=== PATIENT | female | born 1995 | race Caucasian/White ===

== ENCOUNTER → 2020-10-08 07:59 | Outpatient (CLI) | payer MEDICAID, SELFPAY ==
--- NOTE | 2020-10-08 | DI.US.S_ITS ---
PROCEDURE: US OB <= 14 WEEKS FETUS INDICATIONS: SIZE AND DATING OUTSIDE/PRIOR DATING DATA: Last menstrual period (LMP): 08/11/2020. LMP-based estimated date of delivery (LEDA): 05/18/2021. First dating scan (date and location): 10/09/2019. Estimated date of delivery (LEDA) from first dating scan: 05/16/2021. TECHNIQUE: Real-time scanning was performed of the fetus and maternal pelvic organs, with image documentation. Endovaginal scanning was also performed to better visualize the fetus and maternal ovaries. COMPARISON: None. FINDINGS: Embryo: Single live intrauterine is identified with crown-rump length measuring 2.0 cm corresponding to 8 weeks 4 days. heart rate identified at 165 beats per minute. Measurement variability in dating: +/- 4 weeks by LMP, +/- 7 days by mean sac diameter (use before 6 weeks gestation if crown-rump length not able to be measured), +/- 5 days by crown-rump length (up to 8 weeks 6 days gestation), +/- 7 days by crown-rump length (up to 13 weeks 6 days gestation). Maternal organs: Right ovary is not visualized. Presumed corpus luteal cyst is noted within the left ovary. IMPRESSION: 1. Single live intrauterine with ultrasound gestational age of 8 weeks 4 days. 2. Recommend follow-up imaging at 20-22 weeks for dates and anatomy. Dictated by: Cindy Mason M.D. on 10/08/2020 at 12:12 Approved by: Cindy Mason M.D. on 10/08/2020 at 12:14
== END ==
PROVIDERS: PCP Nurse Practitioner Family; Referring Provider Nurse Practitioner Family; Visit Provider Nurse Practitioner Family
DX: Z36.87 Encounter for antenatal screening for uncertain dates (principal); Z3A.08 8 weeks gestation of pregnancy
CPT/HCPCS: 76801